=== PATIENT | female | born 1985 | race Native Hawaiian/Other Pacific Islander ===

== ENCOUNTER 2025-03-22 11:08 | Emergency (ER) | payer OTHER, SELFPAY ==
--- NOTE | ~2025-03-22 | XR_ITS ---
EXAMINATION: XR KNEE, LEFT CLINICAL INFORMATION: pain s/p twisting/fall 6d ago COMPARISON: None available. TECHNIQUE: Four views of the left knee. FINDINGS: No acute cortical disruption or malalignment. No suprapatellar bursa joint effusion. There is a 2.5 cm eccentric mixed chondromatrix bone lesion within the endosteal cortex of the posterior lateral distal diaphysis of the left femur. XR/XR knee LT 3V IMPRESSION: No acute fracture or dislocation. 2.5 cm eccentric bone lesion, distal diaphysis left femur. Consider benign versus less likely malignant. Electronically signed by: Cornelius Reynolds MD 03/22/2025 11:36 AM EDT
--- NOTE | 2025-03-22 11:12 | ED_ITS ---
HPI - Extremity Injury (Lower) General Chief Complaint: Extremity Injury, Lower Stated Complaint: L Side/ Leg Pain Time Seen by Provider: 03/22/25 13:03 Source: patient and RN notes reviewed Mode of arrival: ambulatory Limitations: no limitations History of Present Illness ED Provider: Nicky Atkinson PA-C HPI Narrative: This is a 39-year-old female, with no known medical problems, who presents emergency department with complaints of left knee pain status post mechanical fall which occurred 3 days ago. Patient was recently admitted to [facility] due to the flu and asthma exacerbation. She states that she had to use the restroom, and called for help however no one was there to help her and she accidentally fell landing directly onto her left knee. No head strike or LOC. She states that she has been unable to bear weight on her left leg secondary to the pain. Denies former injury to this knee in the past. She has been taking Tylenol PM for her pain, last dose was this morning at 10:00 a.m. No other complaints or concerns at this time. MD complaint: knee injury Onset (ago): day(s) Type of Injury: blunt Relieving factors: nothing Exacerbating factors: nothing Other symptoms: none Related Data Previous Rx's ?Medication ?Instructions ?Recorded morphine 15 mg immediate release 15 mg PO Q6H PRN severe pain 03/22/25 tablet (scale score 7-10) 3 days #7 tabs Allergies Allergy/AdvReac Type Severity Reaction Status Date / Time ibuprofen Allergy Difficulty Verified 03/22/25 11:16 Breathing NSAIDS (Non-Steroidal Allergy Difficulty Verified 03/22/25 11:16 Anti-Inflamma Breathing Review of Systems Review of Systems: Yes all other systems are reviewed and are negative Constitutional: Constitutional: Reports as per HPI [facility] Past Medical History Attestation statement: The following information was validated with the patient. Social History Social History Smoked in Last 30 Days: No Advance Directives: No Advance Directives Information Provided: Yes Do you have a plan to hurt others: No Plan Patient : No Physical Exam Vital Signs: Vital Signs: Last Vital Signs Temp 98.1 F 03/22/25 14:29 Pulse 107 H 03/22/25 14:29 Resp 16 03/22/25 14:29 BP 140/75 H 03/22/25 14:29 Pulse Ox 98 03/22/25 14:29 O2 Del Method Room Air 03/22/25 14:29 BMI result Body Mass Index 31.8 Appearance: Alert. Oriented X3. No acute distress. Eyes: Pupils equal, round and reactive to light. ENT: Pharynx normal. Neck: Normal inspection. Neck supple. CVS: Normal heart rate and rhythm. Pulses normal. Respiratory: No respiratory distress. Breath sounds normal. Abdomen: Soft and nontender. +BS x4 Skin: Skin warm and dry. Normal skin color. Normal skin turgor. No rashes. Extremities: Left knee, with no obvious bony deformity or swelling, she does have exquisite tenderness throughout the entire knee joint, decreased range of motion secondary to pain. No open wounds or lacerations, able to flex and extend however limited secondary to pain. No erythema noted. No patellar tenderness. Neuro: Oriented X 3. No motor deficit. No sensory deficit. CN II-XII intact. Course Course Course Narrative: This is a Rapid Medical Exam performed in triage by Abril Ritchie PA-C. Full HPI, ROS and PE to be performed by primary ED provider. 39 yo F w/PMHx asthma, presenting to the ED c/o L knee pain s/p twisting injury/fall onto knee while admitted at [facility] during admission 6 days ago. States she is unable to ambulate due to pain PE: L knee with mild swelling, +ttp, NV intact distally Plan: XR, pain control Medications Administered Discontinued Medications Generic Name Dose Route Start Last Admin Trade Name Freq PRN Reason Stop Dose Admin Morphine Sulfate 15 mg 03/22/25 13:32 03/22/25 13:58 Morphine Sulfate Immed Release 15 Mg Tablet PO 03/22/25 13:33 15 mg ONCE ONE Administration Medical Decision Making Medical Decision Making MDM Narrative: This is a 39-year-old female who presents emergency department with complaints of left knee pain status post mechanical fall which occurred 3 days ago. On arrival, patient mildly hypertensive and tachycardic at 107, she was speaking full sentences under no acute distress. She does have exquisite tenderness throughout the entire left knee. X-rays were obtained, revealing no acute findings however there is a 2.5 cm eccentric bone lesion of the distal diaphysis left femur - considered benign versus malignant. Discussed this finding with patient. Given that she was tearful and allergic to NSAIDs, she was medicated with morphine in the department. She was not driving, she states that her partner is driving her home. She was placed in knee immobilizer and given crutches. Discussed follow-up with orthopedics given x-ray report, and pain. She understands agrees with plan. Given strict return precautions. Stable for discharge. Differential Diagnosis Differential Diagnoses: The differential diagnosis associated with the presentation includes Sprain, strain, contusion, fracture Radiology Impression Discussion of test interpretation with radiology: I have reviewed the radiologist's reading. Radiologist Impression: FINDINGS: No acute cortical disruption or malalignment. No suprapatellar bursa joint effusion. There is a 2.5 cm eccentric mixed chondromatrix bone lesion within the endosteal cortex of the posterior lateral distal diaphysis of the left femur. XR/XR knee LT 3V IMPRESSION: No acute fracture or dislocation. 2.5 cm eccentric bone lesion, distal diaphysis left femur. Consider benign versus less likely malignant. Discharge Plan Discharge Clinical Impression: Contusion of knee, left Patient Disposition: Home, Self-Care Instructions: Contusion in Adults (ED) Additional Instructions: You were seen in the emergency department due to knee pain. Your x-rays do not show any fractures or dislocations. You do have a 2.5 cm eccentric bone lesion, distal diaphysis left femur. Consider benign versus less likely malignant. You need to follow-up with the entry specialists and or your primary care physician regarding this finding. We are unable to rule out any ligament injury therefore we are putting you in a knee immobilizer, and giving you crutches. Please continue using Tylenol at home as needed for mild pain. Morphine is a strong narcotic pain medication that I can prescribe 2 however we are limited on how many tablets we can sent over to the pharmacy. Use this sparingly as it can cause adverse side effects including but not limited to dizziness, sleepiness, addiction, constipation and others. Do not drink or drive while on this medication. If any new or worsening symptoms occur please seek emergent care. Prescriptions: New morphine 15 mg tablet 15 mg PO Q6H PRN (Reason: severe pain (scale score 7-10)) 3 Days Qty: 7 0RF Rx Instructions: Partial Fill upon patient request. Referrals: [facility] [Provider Group] Stand Alone Forms: Work/School Release Interventions: ED Discharge Assessment Last Done: 03/22/25 14:29 Discharge Date/Time: 03/22/25 14:30 Print Language: Georgian
[2025-03-22 11:13] VITALS: BP 140/75; PULSE 107; RESP 16; TEMP 36.7; O2SAT 98; BMI 31.8
[2025-03-22] MEDS: Morphine Sulfate Immed Release 15 MG TABLET PO (13:58)
[2025-03-22 14:29] VITALS: BP 140/75; PULSE 107; RESP 16; TEMP 36.7; O2SAT 98
== END 2025-03-22 14:30 | disposition home or self-care (01) ==
PROVIDERS: Emergency Provider Emergency Medicine; PCP Internal Medicine
DX: S80.02XA Contusion of left knee, initial encounter (principal); X50.1XXA Overexertion from prolonged static or awkward postures, initial encounter; M25.562 Pain in left knee; Y93.89 Activity, other specified; Y92.230 Patient room in hospital as the place of occurrence of the external cause; Y99.9 Unspecified external cause status
CPT/HCPCS: 73562; 99283; 99284

== ENCOUNTER → 2025-03-22 11:17 | Outpatient (BNV) | payer SELFPAY | PROVIDERS: Visit Provider Radiology Diagnostic Radiology | DX: M89.8X6 Other specified disorders of bone, lower leg (principal) | CPT/HCPCS: 73562 ==

== ENCOUNTER 2025-03-30 08:50 | Outpatient (AMB) | payer OTHER, SELFPAY ==
--- NOTE | 2025-03-30 09:02 | A.OFFVIS_ITS ---
Vital Signs 03/30/25 09:08 Height 5 ft 5 in Weight 182 lb BMI 30.3 Intake Visit Reasons: ER - left knee contusion, DOI 03/19/25 Intake Note: Tasha is 39 year old female who presents today for a evaluation of her left knee contusion, DOI 03/18/25. Patient reports she was admitted to [facility] due to having the flu and asthma exacerbation. Patient was given an immobilizer and crutches at the ED. She states that she had to use the commode, and called for help. However no one was there to help her and she fell landing directly onto her left knee. Patient states ongoing pain, her pain is sharp and it radiates through her whole leg. Allergies ibuprofen Allergy (Verified 03/22/25 11:16) Difficulty Breathing NSAIDS (Non-Steroidal Anti-Inflamma Allergy (Verified 03/22/25 11:16) Difficulty Breathing HPI HPI ER - left knee contusion, DOI 03/19/25: Details: Ms. Galdamez is a 39-year-old female who presents to the office today for evaluation of a left knee injury that she sustained on 03/18/2025. She reports that she was an inpatient at [facility] being treated for influenza and an asthma exacerbation. She reports that she was trying to get out of bed to go to the restroom and had requested assistance. She had waited for some time and then decided to get out of bed on her own. At that time she fell landing directly onto the left knee. Ever since then she has had pain that radiates throughout the entire knee and reports the pain radiates up into her thigh and down into her ordoñez and foot. This is also accompanied by numbness and tingling. She presented to the [facility] Emergency Department on 03/22/25 where x-rays were obtained. There was no acute fracture or dislocation. However, there was a 2.5 cm eccentric bone lesion at the distal diaphysis of the left femur. Additionally, the patient was placed into a knee immobilizer and given crutches. She was instructed follow up with orthopedics outpatient for further evaluation and treatment. 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 No ecchymosis or erythema. No signs of infection. Global tenderness to palpation overall anatomical landmarks. Range of motion is 0-45 degrees. Unable to perform Aldair's or anterior drawer due to patient pain and guarding. NVI. Assessment & Plan Assessment & Plan (1) Lesion of left femur: Code(s): M89.9 - Disorder of bone, unspecified Category: Medical (2) Contusion of knee, left: Code(s): S80.02XA - Contusion of left knee, initial encounter Category: Medical Plan Ms. Galdamez is a 39-year-old female who presents to the office today for evaluation of a left knee injury that she sustained on 03/18/2025. She reports that she was an inpatient at [facility] being treated for influenza and an asthma exacerbation. She reports that she was trying to get out of bed to go to the restroom and had requested assistance. She had waited for some time and then decided to get out of bed on her own. At that time she fell landing directly onto the left knee. Ever since then she has had pain that radiates throughout the entire knee and reports the pain radiates up into her thigh and down into her ordoñez and foot. This is also accompanied by numbness and tingling. She presented to the [facility] Emergency Department on 03/22/25 where x-rays were obtained. There was no acute fracture or dislocation. However, there was a 2.5 cm eccentric bone lesion at the distal diaphysis of the left femur. Additionally, the patient was placed into a knee immobilizer and given crutches. She was instructed follow up with orthopedics outpatient for further evaluation and treatment. While in the office today, I provided the patient with a playmaker knee brace off the shelf. She can continue using crutches to assist with ambulation as needed. I encouraged the patient to participate in gentle range of motion to avoid any stiffness. I have ordered an MRI to further evaluate the integrity of the knee and the lesion that was found at the distal diaphysis of the left femur. I contacted our MRI department and specifically mentioned the areas of interest that needs to be imaged as well as placed these instructions in the order as directed. The patient will follow up after the MRI is obtained, sooner if needed. X-rays of the left knee obtained on 03/22/2025: IMPRESSION: No acute fracture or dislocation. 2.5 cm eccentric bone lesion, distal diaphysis left femur. Consider benign versus less likely malignant. Orders: Orders MR knee LT w con Today M89.9 - Disorder of bone, unspecified Coding Level of Care Code New Pt Level 4 (79521) Diagnoses Lesion of left femur M89.9 Contusion of knee, left S80.02XA
[2025-03-30 09:08] VITALS: BMI 30.3
== END 2025-03-30 09:41 | disposition home or self-care (01) ==
LOC: HO.HOS 08:51
PROVIDERS: PCP Internal Medicine; Visit Provider Physician Assistant
DX: M89.9 Disorder of bone, unspecified (principal); S80.02XA Contusion of left knee, initial encounter
CPT/HCPCS: 99203

== ENCOUNTER → 2025-03-30 08:50 | Outpatient (BNVA) | payer OTHER, SELFPAY | PROVIDERS: PCP Internal Medicine; Visit Provider Physician Assistant | DX: S80.02XA Contusion of left knee, initial encounter (principal); M89.9 Disorder of bone, unspecified; X58.XXXA Exposure to other specified factors, initial encounter; Y93.9 Activity, unspecified; Y92.9 Unspecified place or not applicable; Y99.9 Unspecified external cause status | CPT/HCPCS: 99202 ==

== ENCOUNTER → 2025-04-30 10:08 | Outpatient (BNV) | payer OTHER, SELFPAY | PROVIDERS: Visit Provider Radiology Diagnostic Radiology | DX: M87.052 Idiopathic aseptic necrosis of left femur (principal) | CPT/HCPCS: 73720 ==

== ENCOUNTER 2025-04-30 10:11 | Outpatient (REF) | payer OTHER, SELFPAY ==
--- NOTE | ~2025-04-30 | MR_ITS ---
EXAM: MRI left femur was performed without and with IV contrast TECHNIQUE: Multiplanar - multisequence imaging through a left femur, lower extremity was performed without and with IV contrast. Contrast: 8.5 mL gadolinium based IV contrast INDICATION: Incidental sclerotic lesion was present on an x-ray PRIOR: X-ray from March 22, 2025 FINDINGS: Soft tissues: There is no muscle edema or fatty streaking. There is no muscle atrophy. There is no soft tissue mass or fluid collection. No abnormalities are evident along the major neurovascular structures. After contrast, there is physiologic enhancement of the soft tissues. Marrow: There are serpentine bands of low T1 and high T2 signal abnormality in the distal femoral metaphysis extending into the medial femoral condyle greater than lateral femoral condyle involving at least 50% of the subchondral marrow in the medial femoral condyle. There is involvement of the distal 10 cm of the left femur. Lateral femoral condyle signal abnormality is mostly in nonweight-bearing regions. However, there is abnormal subchondral bone extensively in the far posterior lateral condyle. Involving extends mainly to the region of the subchondral marrow of the medial greater than lateral trochlea. After contrast, there is hyperenhancement of the serpentine bands of marrow placement. No marrow edema is apparent. No subchondral collapse is evident, though this could be better delineated on dedicated knee MRI. The right femur was imaged only in the coronal plane. It demonstrates a similar abnormality measuring 2.8 x 6.3 cm (transverse by CC) located in the distal metadiaphysis and a small focal area in the posterior nonweightbearing subchondral marrow of the medial femoral condyle. This area also hyperintense. MR/MR femur LT wo/w con IMPRESSION: Avascular necrosis is present in the left greater than right distal femoral metadiaphyses and femoral condyles. Involvement in the left medial femoral condyle extends to the subchondral bone involving 50-75% of the subchondral bone marrow and could be at risk for future subchondral insufficiency fracture and collapse. Electronically signed by: Adryan Wang MD 04/30/2025 03:00 PM EDT
[2025-04-30] MEDS: gadobutroL 10 ML VIAL IVPUSH (11:00)
== END 2025-04-30 10:12 | disposition home or self-care (01) ==
LOC: HO.MRI 10:11
PROVIDERS: Visit Provider Physician Assistant
DX: M89.9 Disorder of bone, unspecified (principal)
CPT/HCPCS: 73720; A9585

== ENCOUNTER 2025-05-01 09:01 | Outpatient (AMB) | payer OTHER, SELFPAY ==
--- NOTE | 2025-05-01 09:17 | MHC.OFFVIS ---
Vital Signs 05/01/25 09:28 Height 5 ft 5 in Weight 182 lb BMI 30.3 Intake Visit Reasons: OV - brace fitting adjustment Intake Note: Tasha is 39 year old female who presents today for a brace fitting adjustment for her left knee. Patient mentions that her pain has been constant since her brace keeps falling down. Allergies ibuprofen Allergy (Verified 05/01/25 09:23) Difficulty Breathing NSAIDS (Non-Steroidal Anti-Inflamma Allergy (Verified 05/01/25 09:23) Difficulty Breathing HPI HPI OV - brace fitting adjustment: Details: Ms. Galdamez presents to the office today for a brace fitting and further discussion of MRI findings. She reports that she is having extreme difficulty with pain in the left knee. She presents to the office today wearing the prior knee brace given and attempting to walk on her toes. 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 No ecchymosis or erythema. No signs of infection. Global tenderness to palpation overall anatomical landmarks. Range of motion is 0-45 degrees. Unable to perform Aldair's or anterior drawer due to patient pain and guarding. NVI. Assessment & Plan Assessment & Plan (1) Avascular necrosis: Code(s): M87.00 - Idiopathic aseptic necrosis of unspecified bone Category: Medical Plan While in the office today I again discussed the MRI findings with the patient being avascular necrosis in the right distal femur. With the involvement of the left medial femoral condyle involving 50-75% of the subchondral bone marrow, I did we explained to the patient that there could be a high risk for future insufficiency fracture and collapse. Therefore, after discussion with Dr. Crooks about the case yesterday before calling the patient for her results a collaborative treatment plan was created. The plan was to have the patient continue her bracing and go back to using crutches with TTWB. Although the patient did not present to the office today with her crutches she does report that she has a pair at home that she will use. It was demonstrated to the patient while in the office today how to TTWB with crutches. She understands and accepts the risks involving this injury and noncompliance with recommendations could lead to the need for surgical intervention or additional orthopedic intervention. She will follow up in 4-6 weeks, sooner if needed. Should the patient have a sudden increase in pain she will contact our office immediately or present to the emergency department for evaluation. MRI obtained on 04/30/2025: IMPRESSION: Avascular necrosis is present in the left greater than right distal femoral metadiaphyses and femoral condyles. Involvement in the left medial femoral condyle extends to the subchondral bone involving 50-75% of the subchondral bone marrow and could be at risk for future subchondral insufficiency fracture and collapse. Medications: New tramadol 50 mg PO Q6-8H PRN 28 tabs 0RF pain Coding Level of Care Code Est Pt Level 3 (46062) Diagnoses Avascular necrosis M87.00
[2025-05-01 09:28] VITALS: BMI 30.3
== END 2025-05-01 09:45 | disposition home or self-care (01) ==
LOC: HO.HOS 09:01
PROVIDERS: Visit Provider Physician Assistant
DX: M87.051 Idiopathic aseptic necrosis of right femur (principal)
CPT/HCPCS: 99213

== ENCOUNTER → 2025-05-01 09:01 | Outpatient (BNVA) | payer OTHER, SELFPAY | PROVIDERS: Visit Provider Physician Assistant | DX: M87.00 Idiopathic aseptic necrosis of unspecified bone (principal) | CPT/HCPCS: 99212 ==

== ENCOUNTER 2025-05-10 17:32 | Emergency (ER) | payer OTHER, SELFPAY ==
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
[2025-05-10 17:51] VITALS: BP 121/75; PULSE 68; RESP 18; TEMP 36.3; O2SAT 98; BMI 30.3
--- NOTE | 2025-05-10 17:53 | ED_ITS ---
HPI - General Adult General Chief complaint: Eye Problems Stated complaint: left eye pain,swelling Time Seen by Provider: 05/10/25 20:29 History of Present Illness ED Provider: Bobby Fortune MD HPI narrative: [age] female. Eye irritation and pain and drainage. Related Data Previous Rx's ?Medication ?Instructions ?Recorded morphine 15 mg immediate release 15 mg PO Q6H PRN severe pain 03/22/25 tablet (scale score 7-10) 3 days #7 tabs tramadol 50 mg tablet 50 mg PO Q6-8H PRN pain #28 tabs 05/01/25 erythromycin 5 mg/gram (0.5 %) eye 1 appl ophthalmic (eye) .at 05/10/25 ointment bedtime #3.5 grams polymyxin B sulfate 10,000 1 drp ophthalmic (eye) Q3H 7 days 05/10/25 unit-trimethoprim 1 mg/mL eye drops #10 mL Allergies Allergy/AdvReac Type Severity Reaction Status Date / Time ibuprofen Allergy Difficulty Verified 05/10/25 17:53 Breathing NSAIDS (Non-Steroidal Allergy Difficulty Verified 05/01/25 09:23 Anti-Inflamma Breathing PMFSH Social History Social History Alcohol intake: current Alcohol intake frequency: holidays/special occasions only Patient Tobacco Use Status: Former Tobacco user Cigarettes Per Day: 3 Current occupational status: employed 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 Left eye with EOM I, regular circular pupil with constriction. Injected and tearing. Moderately photophobic. No hypopyon or hyphema Fluorescein staining with scleral uptake at about 03:00 o'clock. No corneal uptake or Benton sign Course Course Course Narrative: RME, this is a rapid medical exam performed by Suraj Madden please refer to primary provider for complete H&P- 39 year old female presents for evaluation of left eye pain. She woke up with mild discomfort and now has severe pain and tearing. She has a pinpoint pupil, injected sclera. No clear ulceration. There is mild periorbital edema. Plan for labs, focused eye exam Medications Administered Discontinued Medications Generic Name Dose Route Start Last Admin Trade Name Freq PRN Reason Stop Dose Admin Diphtheria/Tetanus/Acell Pertussis 0.5 ml 05/10/25 20:39 05/10/25 22:35 Diphth,Pertus(Acell),Tet Adult 0.5 Ml Syringe IM 05/10/25 20:40 0.5 ml .ONCE ONE Administration Erythromycin 1 cm 05/10/25 20:45 05/10/25 22:37 Erythromycin Base 0.5% Oph Oin 1 Gm Tube EYE-LEFT 05/10/25 20:46 1 cm ONCE ONE Administration Fluorescein Sodium 1 strip 05/10/25 17:53 05/10/25 22:35 Fluorescein Sodium Strip EYE-LEFT 05/10/25 17:54 1 strip ONCE ONE Administration Ibuprofen 800 mg 05/10/25 20:39 05/10/25 22:38 Ibuprofen 800 Mg Tablet PO 05/10/25 20:40 Not Given ONCE ONE Oxycodone HCl 5 mg 05/10/25 20:39 05/10/25 22:36 Oxycodone Hcl Immed Release 5 Mg Tablet PO 05/10/25 20:40 5 mg ONCE ONE Administration Tetracaine HCl 1 drop 05/10/25 17:53 05/10/25 22:35 Tetracaine Hcl/Pf 0.5% Oph Juliana 4 Ml Drops EYE-LEFT 05/10/25 17:54 1 drop ONCE ONE Administration Medical Decision Making Lab Data 05/10/25 18:08 05/10/25 18:08 Labs: Lab Results 05/10/25 Range/Units 18:08 WBC 11.2 H (4.8-10.8) X10*3/uL RBC 4.48 (4.20-5.50) X10*6/uL Hgb 12.5 (12.0-16.0) g/dl Hct 37.7 (37.0-47.0) % MCV 84.2 (80.0-98.0) fL MCH 27.9 (27.0-33.0) pg MCHC 33.2 (31.0-35.0) g/dl RDW 14.5 (11.0-16.0) % Plt Count 407 H (160-400) X10*3/uL MPV 9.4 (9.4-12.3) fL Immature Gran % (Auto) 0.2 (0.0-0.4) % Neut % (Auto) 70.8 (45-73) % Lymph % (Auto) 20.5 (20-40) % [place] % (Auto) 5.5 (2-11) % Eos % (Auto) 2.4 (0-4) % Baso % (Auto) 0.6 (0-2) % Lymph # (Auto) 2.3 (1.2-4.9) X10*3/uL [place] # (Auto) 0.6 (0.1-1.2) X10*3/uL Eos # (Auto) 0.3 (0.0-0.4) X10*3/uL Baso # (Auto) 0.1 (0.0-0.2) X10*3/uL Abs Immat Gran (auto) 0.02 (0.00-0.03) X10*3/uL Absolute Neuts (auto) 7.9 (2.0-8.3) x10*3/uL Absolute Nucleated RBC 0.000 (0.0-0.012) X10*3/uL Nucleated RBC % (auto) 0.0 (0.0-0.2) /100WBC Sodium 141 (135-145) mmol/L Potassium 4.3 (3.3-5.1) mmol/L Chloride 106 (96-108) mmol/L Carbon Dioxide 27 (22-29) mmol/L Anion Gap 12 (12-20) BUN 10 (9-16) mg/dL Creatinine 0.64 (0.5-1.4) mg/dL Estim Creat Clear Calc 126.4 Estimated GFR > 60 Random Glucose 95 (60-115) mg/dL Calcium 9.2 (8.4-10.2) mg/dL Beta HCG, Quant < 2 mIU/mL Discharge Plan Discharge Clinical Impression: Abrasion of sclera Patient Disposition: Home, Self-Care Instructions: Corneal Abrasion (ED), Photophobia (ED) Additional Instructions: _ DISCHARGE DIAGNOSES: Abrasion of the sclera injury to the eye HISTORY OF PRESENTATION: ?[03] EMERGENCY DEPARTMENT COURSE,TESTS, TREATMENTS: While in the ED today [04] DISCHARGE MEDICATIONS: ?[We have made no changes to your regular medication regimen] FOLLOW-UP: ?Call your primary or general physician soon as possible to discuss your symptoms, your ED visit and to discuss follow up plans call ophtho INSTRUCTIONS ?& RETURN PRECAUTIONS: If any symptoms change first call your primary physician, if it is after-hours your primary doctors office should have a provider senior environmental practice leader you can speak with. If the symptoms are severe or very concerning to you then call 911 or return to the ED. [07] Bobby Fortune MD Emergency Physician [facility] Prescriptions: New polymyxin B sulf-trimethoprim 10,000 unit- 1 mg/mL drops 1 drp ophthalmic (eye) Q3H 7 Days Qty: 10 0RF Rx Instructions: while awake; do not exceed 6 doses in 24 hours erythromycin 5 mg/gram (0.5 %) ointment 1 appl ophthalmic (eye) .at bedtime Qty: 3.5 0RF No Action morphine 15 mg tablet 15 mg PO Q6H PRN (Reason: severe pain (scale score 7-10)) 3 Days Qty: 7 0RF Rx Instructions: Partial Fill upon patient request. tramadol 50 mg tablet 50 mg PO Q6-8H PRN (Reason: pain) Qty: 28 0RF Referrals: Cristhian Hopkins [Physician] - 2 days Interventions: ED Discharge Assessment Last Done: 05/10/25 23:01 Discharge Date/Time: 05/10/25 23:01 Print Language: [place]
[2025-05-10 18:12] LABS: MANUAL DIFF FLAG NO
[2025-05-10 18:15] LABS: Basophils Absolute Auto 0.1 X10*3/uL (0.0-0.2); Basophils Percent Auto 0.6 % (0-2); Eosinophils Absolute Auto 0.3 X10*3/uL (0.0-0.4); Eosinophils Percent Auto 2.4 % (0-4); Hematocrit 37.7 % (37.0-47.0); Hemoglobin 12.5 g/dl (12.0-16.0); Imm Gran Abs Auto 0.02 X10*3/uL (0.00-0.03); Imm Gran Pct Auto 0.2 % (0.0-0.4); Lymphocytes Absolute Auto 2.3 X10*3/uL (1.2-4.9); Lymphocytes Percent Auto 20.5 % (20-40); Mean Corpuscular HGB Conc 33.2 g/dl (31.0-35.0); Mean Corpuscular Hemoglobin 27.9 pg (27.0-33.0); Mean Corpuscular Volume 84.2 fL (80.0-98.0); Mean Platelet Volume 9.4 fL (9.4-12.3); Monocytes Absolute Auto 0.6 X10*3/uL (0.1-1.2); Monocytes Percent Auto 5.5 % (2-11); Neutrophils Absolute Auto 7.9 x10*3/uL (2.0-8.3); Neutrophils Percent Auto 70.8 % (45-73); Platelet Count 407 X10*3/uL (160-400); Red Blood Count 4.48 X10*6/uL (4.20-5.50); Red Cell Distribution Width 14.5 % (11.0-16.0); White Blood Count 11.2 X10*3/uL (4.8-10.8)
[2025-05-10 18:32] LABS: Anion Gap 12 (12-20); Blood Urea Nitrogen 10 mg/dL (9-16); Calcium 9.2 mg/dL (8.4-10.2); Carbon Dioxide 27 mmol/L (22-29); Chloride 106 mmol/L (96-108); Creatinine Clr Calc Pharmacy 126.4; Estimated Glomerular Filt Rate > 60; Glucose Random 95 mg/dL (60-115); Potassium 4.3 mmol/L (3.3-5.1); Sodium 141 mmol/L (135-145)
[2025-05-10 18:36] LABS: HCG Quantitative < 2 mIU/mL
[2025-05-10 19:19] VITALS: BP 117/65; PULSE 59; RESP 18; TEMP 36.9; O2SAT 97
[2025-05-10 22:04] VITALS: BP 126/60; PULSE 60; RESP 18; TEMP 36.9; O2SAT 97
[2025-05-10] MEDS: Diphth,Pertus(ACell),Tet Adult 0.5 ML SYRINGE IM (22:35)
[2025-05-10] MEDS: Tetracaine HCl/PF 0.5% Oph Sol 4 ML DROPS 1 DROP EYE-LEFT (22:35)
[2025-05-10] MEDS: Fluorescein Sodium STRIP 1 STRIP EYE-LEFT (22:35)
[2025-05-10] MEDS: oxyCODONE HCl Immed Release 5 MG TABLET PO (22:36)
[2025-05-10] MEDS: Erythromycin Base 0.5% Oph Oin 1 GM TUBE 1 CM EYE-LEFT (22:37)
[2025-05-10 23:01] VITALS: BP 126/60; PULSE 60; RESP 18; TEMP 36.9; O2SAT 97
== END 2025-05-10 23:01 | disposition home or self-care (01) ==
PROVIDERS: Physician Assistant; Emergency Provider Emergency Medicine; PCP Internal Medicine
DX: S05.02XA Injury of conjunctiva and corneal abrasion without foreign body, left eye, initial encounter (principal); H57.12 Ocular pain, left eye; H53.142 Visual discomfort, left eye; H05.222 Edema of left orbit; X58.XXXA Exposure to other specified factors, initial encounter; Y93.9 Activity, unspecified; Y92.9 Unspecified place or not applicable; Y99.8 Other external cause status; Z23 Encounter for immunization; Z87.891 Personal history of nicotine dependence
CPT/HCPCS: 36415; 70480; 80048; 84702; 85025; 90471; 90715; 99284

== ENCOUNTER → 2025-05-10 20:44 | Outpatient (BNV) | payer OTHER, SELFPAY | PROVIDERS: Emergency Provider Emergency Medicine; PCP Internal Medicine; Visit Provider Radiology Diagnostic Radiology | DX: H57.12 Ocular pain, left eye (principal) | CPT/HCPCS: 70480 ==

== ENCOUNTER 2025-06-14 09:01 | Outpatient (REF) | payer OTHER, SELFPAY ==
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
--- NOTE | ~2025-06-14 | XR_ITS ---
EXAMINATION: XR KNEE, LEFT CLINICAL INFORMATION: M25.569 - Pain in unspecified knee COMPARISON: None available. TECHNIQUE: Standing bilateral AP, sunrise and lateral views of the left knee. FINDINGS: There is a small amount of synovial fluid in the suprapatellar pouch. There are no osteophytes. Joint spaces are preserved. XR/XR knee LT 3V IMPRESSION: Unremarkable left knee. Electronically signed by: Adryan Wang MD 06/14/2025 11:15 AM EDT
== END 2025-06-14 09:02 | disposition home or self-care (01) ==
LOC: HO.HOSX 09:01
PROVIDERS: Visit Provider Physician Assistant
DX: M87.052 Idiopathic aseptic necrosis of left femur (principal)
CPT/HCPCS: 73562; 99212

== ENCOUNTER 2025-06-14 10:25 | Outpatient (AMB) | payer OTHER, SELFPAY ==
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
== END 2025-06-14 11:43 | disposition home or self-care (01) ==
LOC: HO.HOS 10:25
PROVIDERS: Visit Provider Physician Assistant
DX: M87.00 Idiopathic aseptic necrosis of unspecified bone (principal); M89.9 Disorder of bone, unspecified
CPT/HCPCS: 99213

== ENCOUNTER → 2025-06-14 10:31 | Outpatient (BNV) | payer MEDICAID, SELFPAY | PROVIDERS: Visit Provider Radiology Diagnostic Radiology | DX: M25.462 Effusion, left knee (principal) | CPT/HCPCS: 73562 ==

== ENCOUNTER 2025-07-21 09:30 | Outpatient (REF) | payer OTHER, SELFPAY ==
--- NOTE | ~2025-07-21 | MR_ITS ---
CLINICAL HISTORY: M87.00 - Idiopathic aseptic necrosis of unspecified bone --- Additional Notes or Special Instructions: Patient has known left distal femur AVN MR of the left knee without contrast. No prior MR provided. Findings: No meniscal tear is seen. The cruciate and collateral ligaments are intact. The patellar and quadriceps tendons are unremarkable. There are multiple prominent bone infarcts in the distal femur. No articular cartilage defects or significant degenerative changes are seen. Patellofemoral alignment is normal. The patellar retinacula are intact. There is a minimal joint effusion. No significant popliteal cyst is identified. Impression: Multiple prominent bony infarcts in the distal femur. Minimal joint effusion. There is minimal edema deep to the iliotibial band that may be incidental. Mild iliotibial band friction syndrome is technically a possibility. This document has been electronically signed by: Donell Roque MD on 07/23/2025 20:04:49
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
== END 2025-07-21 09:31 | disposition home or self-care (01) ==
LOC: HO.MRI 09:30
PROVIDERS: Visit Provider Physician Assistant
DX: M87.012 Idiopathic aseptic necrosis of left shoulder (principal)
CPT/HCPCS: 73721

== ENCOUNTER → 2025-07-21 09:30 | Outpatient (BNV) | payer OTHER, SELFPAY | PROVIDERS: Visit Provider Radiology Diagnostic Radiology | DX: M87.052 Idiopathic aseptic necrosis of left femur (principal) | CPT/HCPCS: 73721 ==

== ENCOUNTER 2025-08-15 10:51 | Outpatient (AMB) | payer OTHER, SELFPAY ==
[2025-08-15 10:57] VITALS: BP 128/71; PULSE 88; RESP 18; O2SAT 99; BMI 31.6
--- NOTE | 2025-08-15 10:57 | A.OFFVIS_ITS ---
Vital Signs 08/15/25 10:57 Height 5 ft 5 in Weight 190 lb BMI 31.6 BP 128/71 Blood Pressure Location Lt brachial Position Sitting Respiration 18 Pulse 88 Pulse Source Pulse Oximeter Pulse Oximetry (%) 99 Intake Visit Reasons: Idiopathic aseptic necrosis of unspecified bone Allergies ibuprofen Allergy (Verified 08/15/25 10:57) Difficulty Breathing NSAIDS (Non-Steroidal Anti-Inflamma Allergy (Verified 08/15/25 10:57) Difficulty Breathing HPI Comments Details: Mary is very pleasant 40 years old female who presents in my office with complains on pain in bilateral knees more on the left and less on the right, she also reports that left pain radiates up to the thigh and on the lateral surface of the thigh he reports that pain stays elevated 8.5 to 7.5 on the left all the time. She reported that her pain started in [id number] when she while treated at [facility] fell in the bathroom. She was diagnose with bilateral more pronounced on the left and less on the right avascular necrosis of bilateral knees. Since then she reports severe pain in bilateral knees, she can not sleep normally can not do activities of daily living she can not take care of herself but she can not function normally. She is unemployed. Heat application and cold application helps her pain for short period of time. In terms of tissue damage she describes her pain as throbbing, pounding, shooting, stabbing, sharp, cramping, tingling, stinging, sore, heavy, exhausting, fried full cessation. She had MRIs performed in [facility] dictated as below. She tried occupational therapy she is currently wearing brace on the left knee. She tried 10s unit she reports no help from 10s unit. She never had any injections into the knee. Her past medical history significant for history of ASD type 2 history and heart murmur and history of asthma. Is morbidly obese. Past surgical history significant for tubal ligations and tonsils removal as a child. She currently smokes cigarettes. She smokes 1-2 cigarettes a day she is trying to wean herself off of cigarettes smoking. She denies alcohol drinking, she drinks 2 cups of coffee a day and she denies recreational drugs. 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 Review of Systems Const All systems reviewed & are unremarkable except as noted in HPI and below ENT Reports Normal hearing present Neuro Reports Normal hearing present, Denies Abnormal speech present, Denies confusion and Denies Sensory deficit (Neuro) Psych Denies confusion Physical Exam Vital Signs: Last Vital Signs Pulse 88 08/15/25 10:57 Resp 18 08/15/25 10:57 BP 128/71 08/15/25 10:57 Pulse Ox 99 08/15/25 10:57 BMI result Body Mass Index 31.6 Const General: no acute distress; No confusion Nutritional Appearance: obese morbidly obese Orientation/consciousness: patient oriented x3 and No confusion Eyes General: appearance normal, both eyes and all related structures Pupils: Equal, round and reactive pupils present EOM: EOMs intact bilaterally Neck Neck: Yes full ROM Chest Chest palpation & inspection: normal inspection of the chest Resp Effort & Inspection: normal respiratory effort, able to speak in complete sentences, normal respiratory pattern, no audible wheezes and no cough Cardio Jugular venous distension: no JVD GI Inspection: Yes normal to inspection Neuro General: patient oriented x3, gait normal and No confusion Cranial nerves: Yes CN's II-XII intact bilaterally, Yes Equal, round and reactive pupils present, Yes Normal hearing present and Yes Ability to bilaterally elevate shoulders present Speech: No Abnormal speech present Gait exam (Neuro): Normal gait present Motor exam (neuro): 5/5 motor strength present throughout Sensory Exam: No Sensory deficit (Neuro) Extrem Other: On inspection the patient is wearing a brace in the left knee positioned. Range of motion in bilateral knees severely compromised more on the left and less on the right. Severe tenderness on palpation in projection of the left knee and left thigh. General: No pedal edema Psych Speech and movement: Normal speech and movement present Affect: normal affect Attitude: cooperative Thought process: Normal thought process present Thought content: Normal thought content present Insight: Good insight present (Psych) Judgement: Good judgement present (Psych) Results Reviewed Results Reviewed: MRI bilateral knees. MR of the left knee without contrast. No prior MR provided. Findings: No meniscal tear is seen. The cruciate and collateral ligaments are intact. The patellar and quadriceps tendons are unremarkable. There are multiple prominent bone infarcts in the distal femur. No articular cartilage defects or significant degenerative changes are seen. Patellofemoral alignment is normal. The patellar retinacula are intact. There is a minimal joint effusion. No significant popliteal cyst is identified. Impression: Multiple prominent bony infarcts in the distal femur. Minimal joint effusion. There is minimal edema deep to the iliotibial band that may be incidental. Mild iliotibial band friction syndrome is technically a possibility. Assessment & Plan Assessment & Plan (1) Lesion of left femur: Code(s): M89.9 - Disorder of bone, unspecified Category: Medical (2) Avascular necrosis: Code(s): M87.00 - Idiopathic aseptic necrosis of unspecified bone Category: Medical (3) Bilateral knee pain: Code(s): M25.561 - Pain in right knee; M25.562 - Pain in left knee Category: Medical Plan Avascular necrosis is very pronounced on the MRI of the left knee and moderate on the right knee. The patient complains on mostly left knee pain. I offered this patient to have diagnostic femoral nerve block ultrasound-guided if this will help the patient I will try sprint PNS to help her pain in the knee. I do not believe genicular nerve block will be helpful for her pain. Possibility exists of examining her left iliotibial band and address some sort of a treatments at that area. Also treatment of the pain could be completed with DRG stimulation. Patient Instructions: I here by testify that I spent 45 minutes in conversation with this patient as well as evaluating her prior records, prior diagnostic studies, planning her care and organizing this note. Coding Level of Care Code New Pt Level 4 (31167) Diagnoses Lesion of left femur M89.9 Avascular necrosis M87.00 Bilateral knee pain M25.561; M25.562
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
== END 2025-08-15 11:20 | disposition home or self-care (01) ==
PROVIDERS: PCP Internal Medicine; Referring Provider Physician Assistant; Visit Provider Anesthesiology
DX: M87.0 Idiopathic aseptic necrosis of bone (principal); M25.561 Pain in right knee; M25.562 Pain in left knee
CPT/HCPCS: 99204

== ENCOUNTER → 2025-08-15 10:51 | Outpatient (BNVA) | payer OTHER, SELFPAY | PROVIDERS: Referring Provider Physician Assistant; Visit Provider Anesthesiology | DX: M87.0 Idiopathic aseptic necrosis of bone (principal); M25.561 Pain in right knee; M25.562 Pain in left knee; M89.9 Disorder of bone, unspecified | CPT/HCPCS: 99202 ==

== ENCOUNTER 2025-09-07 09:17 | Day surgery (SDC) | payer OTHER, SELFPAY ==
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
[2025-09-05 14:05] VITALS: BMI 31.6
--- NOTE | 2025-09-05 15:03 | P.CONAN_ITS ---
Documented by User: Abril Gonzalez NP 09/05/25 15:06 HPI - Anesthesia Eval Consult details Narrative: 40 yr old female for left Femoral Nerve Block Pediatric dx ASD type 2, heart murmur: not followed by cardiology; PCP ordered an echo 06/2025, but not yet done - case reviewed with LM, okay to proceed. Asthma: on ICS/LABA PMFSH Active Problems Active Problems: All Active Problems Bilateral knee pain (Acute) Avascular necrosis (Acute) Lesion of left femur (Acute) Past Medical History Medical History Cardiomegaly Former smoker Obesity (BMI 30-39.9) Asthma Murmur ASD (atrial septal defect) Surgical History Surgical History Hx of tonsillectomy Hx of tubal ligation Hx of section Social History Social History Alcohol intake: current Alcohol intake frequency: holidays/special occasions only Patient Tobacco Use Status: Former Tobacco user Cigarettes Per Day: 3 Current occupational status: employed 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 Allergies Allergy/AdvReac Type Severity Reaction Status Date / Time ibuprofen Allergy Difficulty Verified 08/15/25 10:57 Breathing NSAIDS (Non-Steroidal Allergy Difficulty Verified 08/15/25 10:57 Anti-Inflamma Breathing Home Medications ?Medication ?Instructions ?Recorded ?Confirmed ?Last Taken ?Type fluticasone 250 mcg-salmeterol 50 1 ea inhalation BID 09/05/25 09/05/25 Unknown History mcg/dose blistr powdr for inhalation (Advair Diskus) Exam Height,Weight and Vital Signs: Height 5 ft 5 in Weight 86.183 kg Narrative Narrative: EKG 02/2025 NSR, no acute ST-T wave changes, rate 84 Documented by User: Criselda Allison MD 09/07/25 08:48 [facility] Past Medical History Medical History Cardiomegaly Former smoker Obesity (BMI 30-39.9) Asthma Murmur ASD (atrial septal defect) Family History Family history of problems with anesthesia: No Surgical History Surgical History Hx of tonsillectomy Hx of tubal ligation Hx of section History of Problems with Anesthesia: No Social History Social History Alcohol intake: current Alcohol intake frequency: holidays/special occasions only Patient Tobacco Use Status: Former Tobacco user Cigarettes Per Day: 3 Current occupational status: employed 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 Allergies Allergy/AdvReac Type Severity Reaction Status Date / Time ibuprofen Allergy Difficulty Verified 08/15/25 10:57 Breathing NSAIDS (Non-Steroidal Allergy Difficulty Verified 08/15/25 10:57 Anti-Inflamma Breathing Home Medications ?Medication ?Instructions ?Recorded ?Confirmed ?Last Taken ?Type fluticasone 250 mcg-salmeterol 50 1 ea inhalation BID 09/05/25 09/05/25 Unknown History mcg/dose blistr powdr for inhalation (Advair Diskus) Exam Airway Mallampati Class: II TM Dist: >3cm Neck ROM: Full Heart: rrr Lungs: cta Assessment and Plan Assessment Anesthesia Assessment: Anesthesia Plan Discussed and Chart Reviewed Final Anesthetic Review Family History of Problems with Anesthesia: No History of Problems with Anesthesia: No NPO: Yes ASA Class: III Final Preanesthetic Review: No Changes in Pt Med Stat, Meds/Allgs Chart Reviewed, Consent Obtained/Reviewed and Anes Risks/Benef Reviewed Patient Risk: Intermediate Procedure Risk: Low Anesthetic Plan Anesthetic Plan: MAC: and Agree w/ Assess. and Plan Disposition: Standard PACU
[2025-09-07 09:33] VITALS: BP 111/87; PULSE 74; RESP 14; TEMP 36.4; O2SAT 98; BMI 33.0
[2025-09-07] MEDS: Lactated Ringers 1,000 ML 100 ML IVCONT (09:38)
--- NOTE | 2025-09-07 09:52 | MHC.SHP ---
Pre-Procedural Eval Section A - 24 Hr Update-Section A only Date of Service: 09/07/25 The patient is an INPATIENT: No Changes since office visit: Yes Patient answered all questions The patient has been examined within 24 hours of the surgical procedure. The History & Physical has been completed within 30 days and I have reviewed it.: No Section B - Complete if H&P > 30 days Chief Complaint: Idiopathic aseptic necrosis of unspecified bone,pa Details of Present Illness: As above Relevant Family History (Specify if Yes): No Relevant Social History: Other (specify) (Unknown) Present Medications: see Short Stay Collaborative assessment Medical History: Significant History History of Previous Operations: No relevant previous surgery Allergies: Allergies Allergy/AdvReac Type Severity Reaction Status Date / Time ibuprofen Allergy Difficulty Verified 08/15/25 10:57 Breathing NSAIDS (Non-Steroidal Allergy Difficulty Verified 08/15/25 10:57 Anti-Inflamma Breathing Review of Systems Sugical H&P ROS: Negative: Constitution, Cardiovascular, Respiratory, Neurological, Psychiatric, Hem-Onc, Allergic/Immunologic, Gastrointestinal, Genitourinary, Integumentary, Endocrine and Eyes/Ears/Nose/Throat and Yes, Specify: Musculoskeletal (Avascular necrosis bilateral knee) Plan I have reviewed the history and physical and performed a pertinent physical examination on my patient. No changes have occurred unless specified. I will perform femoral nerve block left. Time Spent With Patient Time: Total time managing care of this patient today ____ minutes.
--- NOTE | 2025-09-07 10:13 | PM.OP ---
Brief Operative Note Date of Service: 09/07/25 Pre-op diagnosis: Left knee pain Post-op diagnosis: same Procedure: Femoral nerve block ultrasound-guided Surgeon: Wilmer Lawson MD Anesthesia: MAC Was an Maternity Floor Supervisor used for this Procedure?: No Estimated blood loss (mL): 0 Condition: stable Disposition: PACU
--- NOTE | 2025-09-07 10:14 | W.PM.OPN ---
Operative Note Operative Note Date of Service: 09/07/25 Narrative: Ultrasound-guided femoral nerve block left. The patient came to the operating room after informed consent was thoroughly explained to the patient. She was positioned supine on the operating table, ASA monitors were applied and patient was moderately sedated. The left groin and left thigh were prepped with ChloraPrep and draped with sterile self adhesive utility towels. Sterilely covered ultrasound probe was brought over the groin of the patient and left femoral artery femoral vein and femoral nerve were demonstrated on the screen. 100 mm echo stim needle was inserted next to the ultrasound probe and advanced to were the femoral nerve in in plane fashion. When tip of the needle was positioned next to the nerve injection of the saline was performed and spread of the saline in nerve vicinity was demonstrated on the screen. After that 9 cc of ropivacaine 0.5% was injected into the needle. The spread of the medication next to the nerve was documented on the screen. Upon completion of the injection the needle was withdrawn sterile Band-Aid was applied. The patient tolerated the procedure well. She was taken outside of the operating room to recovery room where she recovered uneventfully.
[2025-09-07 10:16] VITALS: BP 114/61; PULSE 70; RESP 15; TEMP 36.7; O2SAT 100
== END 2025-09-07 11:12 | disposition home or self-care (01) ==
PROVIDERS: Visit Provider Anesthesiology
PROC: 3E0T3BZ Introduction of Anesthetic Agent into Peripheral Nerves and Plexi, Percutaneous Approach (ICD-10-PCS; CPT 64447; principal; 2025-09-07 11:00)
DX: M25.562 Pain in left knee (principal); M87.00 Idiopathic aseptic necrosis of unspecified bone; M89.9 Disorder of bone, unspecified; R20.0 Anesthesia of skin; R01.1 Cardiac murmur, unspecified; Z86.79 Personal history of other diseases of the circulatory system; J45.909 Unspecified asthma, uncomplicated; E66.01 Morbid (severe) obesity due to excess calories; Z68.31 Body mass index [BMI] 31.0-31.9, adult; Z79.51 Long term (current) use of inhaled steroids; Z88.6 Allergy status to analgesic agent; Z56.0 Unemployment, unspecified; F17.210 Nicotine dependence, cigarettes, uncomplicated
CPT/HCPCS: 64447; J2250; J2704; J2795; J3010; J3301

== ENCOUNTER → 2025-09-07 09:17 | Outpatient (BNV) | payer OTHER, SELFPAY | PROVIDERS: Visit Provider Anesthesiology | DX: M87.052 Idiopathic aseptic necrosis of left femur (principal); M89.9 Disorder of bone, unspecified | CPT/HCPCS: 64447 ==

== ENCOUNTER 2025-09-19 13:19 | Outpatient (AMB) | payer OTHER, SELFPAY ==
--- NOTE | 2025-09-19 13:25 | MHC.OFFVIS ---
Vital Signs 09/19/25 13:26 Height 5 ft 5 in Weight 199 lb BMI 33.1 BP 123/67 Blood Pressure Location Lt brachial Position Sitting Respiration 16 Pulse 59 Pulse Source Pulse Oximeter Pulse Oximetry (%) 99 Oxygen Delivery Method Room Air Intake Visit Reasons: EXTREME PAIN SINCE PROCEDURE Tree Pruner Required: No Accompanied by: Self / Same As Patient Allergies ibuprofen Allergy (Verified 09/19/25 13:31) Difficulty Breathing NSAIDS (Non-Steroidal Anti-Inflamma Allergy (Verified 09/19/25 13:31) Difficulty Breathing HPI Comments Details: Mary is back in my office after diagnostic left femoral nerve block. She felt appropriate numbness on the anterior surface of the thigh and anterior surface of the knee however she reported her pain not even became better it got aggravated. Unfortunately in this situation I can only offer to her spinal cord stimulator [place] [employer] in lumbar positioned versus do not root ganglion stimulation L3-L4 L4-5 positioned on the left. Because her pain is bilateral I would prefer to consider [place] [employer] spinal cord stimulator in lumbar gutter positioned. The patient needs to go for psychological evaluation. She has very advanced avascular necrosis in bilateral knees. It is considered to be yatrogenic and related to steroid medications patient took for her asthma. very pleasant 40 years old female who presents in my office with complains on pain in bilateral knees more on the left and less on the right, she also reports that left pain radiates up to the thigh and on the lateral surface of the thigh he reports that pain stays elevated 8.5 to 7.5 on the left all the time. She reported that her pain started in March 17, 2025 when she while treated at [facility] fell in the bathroom. She was diagnose with bilateral more pronounced on the left and less on the right avascular necrosis of bilateral knees. Since then she reports severe pain in bilateral knees, she can not sleep normally can not do activities of daily living she can not take care of herself but she can not function normally. She had MRIs performed in [facility] dictated as below. She tried occupational therapy she is currently wearing brace on the left knee. She tried 10s unit she reports no help from 10s unit. She never had any injections into the knee. 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 Review of Systems Const All systems reviewed & are unremarkable except as noted in HPI and below ENT Reports Normal hearing present Neuro Reports Normal hearing present, Denies Abnormal speech present, Denies confusion and Denies Sensory deficit (Neuro) Psych Denies confusion Physical Exam Vital Signs: Last Vital Signs Pulse 59 09/19/25 13:26 Resp 16 09/19/25 13:26 BP 123/67 09/19/25 13:26 Pulse Ox 99 09/19/25 13:26 Oxygen Delivery Method Room Air 09/19/25 13:26 BMI result Body Mass Index 33.1 Const General: no acute distress; No confusion Nutritional Appearance: obese morbidly obese Orientation/consciousness: patient oriented x3 and No confusion Eyes General: appearance normal, both eyes and all related structures Pupils: Equal, round and reactive pupils present EOM: EOMs intact bilaterally Neck Neck: Yes full ROM Chest Chest palpation & inspection: normal inspection of the chest Resp Effort & Inspection: normal respiratory effort, able to speak in complete sentences, normal respiratory pattern, no audible wheezes and no cough Cardio Jugular venous distension: no JVD GI Inspection: Yes normal to inspection Neuro General: patient oriented x3, gait normal and No confusion Cranial nerves: Yes CN's II-XII intact bilaterally, Yes Equal, round and reactive pupils present, Yes Normal hearing present and Yes Ability to bilaterally elevate shoulders present Speech: No Abnormal speech present Gait exam (Neuro): Normal gait present Motor exam (neuro): 5/5 motor strength present throughout Sensory Exam: No Sensory deficit (Neuro) Extrem Other: On inspection the patient is wearing a brace in the left knee positioned. Range of motion in bilateral knees severely compromised more on the left and less on the right. Severe tenderness on palpation in projection of the left knee and left thigh. General: No pedal edema Psych Speech and movement: Normal speech and movement present Affect: normal affect Attitude: cooperative Thought process: Normal thought process present Thought content: Normal thought content present Insight: Good insight present (Psych) Judgement: Good judgement present (Psych) Assessment & Plan Assessment & Plan (1) Lesion of left femur: Code(s): M89.9 - Disorder of bone, unspecified Category: Medical (2) Avascular necrosis: Code(s): M87.00 - Idiopathic aseptic necrosis of unspecified bone Category: Medical (3) Bilateral knee pain: Code(s): M25.561 - Pain in right knee; M25.562 - Pain in left knee Category: Medical Plan Avascular necrosis is very pronounced on the MRI of the left knee and moderate on the right knee. The patient complains on mostly left knee pain. Diagnostic femoral nerve block resulted in no pain improvement although appropriate numbness was felt on anterior surface of the left knee. Therefore the only last option patient has is to treat her knee pain with [place] [employer] spinal cord stimulator positioned in the lumbar gutter against L3-L4 L4-5 foramina bilaterally. Patient needs to go for psychological evaluation. As soon as we receive psychological evaluation we will start to plan a trial of the [employer] [employer] SCS. Brochure of [employer] [place] [employer] SCS and [facility] brochure were given to the patient. She will give us a call when she will sit up and get her psychological evaluation done and we will schedule appointment with us. Coding Level of Care Code Est Pt Level 3 (54849) Diagnoses Lesion of left femur M89.9 Avascular necrosis M87.00 Bilateral knee pain M25.561; M25.562
[2025-09-19 13:26] VITALS: BP 123/67; PULSE 59; RESP 16; O2SAT 99; BMI 33.1
--- OUTSIDE RECORDS SUMMARY | 2025-09-19 18:47 | XMS_ITS | Clinical Summary ---
Author Organization [facility] Address [address] [place] [phone] Phone Care Team Providers Care Customs Inspector Name Role Phone Chelsea Camacho MD Primary Care Provider [phone] Allergies Active Allergy Reactions Criticality Noted Date Comments Aspirin Anaphylaxis High 06/12/2025 Fish Containing Products 06/12/2025 Ibuprofen Anaphylaxis High 06/12/2025 Naproxen Anaphylaxis High 06/12/2025 Nsaids (Non-Steroidal Anti-I nflammatory Drug) Anaphylaxis High 06/12/2025 Medications No known medications Active Problems No known active problems Medical History Medical History Date Comments Avascular bone necrosis ([facility] V24, [facility] V2 8) Asthma Social History Tobacco Use [...] (2 of 2 - PCV) 02/02/2011 02/02/2010 HPV Vaccines (1 - 3-dose SCDM series) 2013 Cholesterol Screening (Lipid Panel) 11/01/2022 HIV Screening 11/01/2022 Hepatitis C Screening 11/01/2022 Social Influencers of Health Screening 11/01/2022 Depression Screening 11/29/2024 COVID-19 Vaccine ( season) 2025 03/16/2024, 03/01/2024, 08/04/2022, Additional history exists Influenza Vaccine (#1) 2025 , 12/05/2021, 12/13/2017, Additional history exists DTaP,Tdap,and Td Vaccines (3 - Td or Tdap) 12/05/2031 12/05/2021, 01/13/2011 RSV Immunization Adult Patients (1 - 1-dose 75+ series) 2061 HIB Vaccines Aged Out No longer eligi [...] on patient's age to complete this topic Insurance [facility] PLAN AUTO GENERIC MEDICAID - [place] [address] HEALTH PLAN Care Teams Customs Inspector Relationship Specialty Start Date End Date Chelsea Camacho MD [address] [phone] PCP - General Internal Medicine 06/12/25
== END 2025-09-19 14:06 | disposition home or self-care (01) ==
LOC: HO.PMC 13:20
PROVIDERS: Visit Provider Anesthesiology
DX: M89.9 Disorder of bone, unspecified (principal); M87.00 Idiopathic aseptic necrosis of unspecified bone; M25.561 Pain in right knee; M25.562 Pain in left knee
CPT/HCPCS: 99213

== ENCOUNTER → 2025-09-19 13:19 | Outpatient (BNVA) | payer OTHER, SELFPAY | PROVIDERS: Visit Provider Anesthesiology | DX: M25.561 Pain in right knee (principal); M25.562 Pain in left knee; M89.9 Disorder of bone, unspecified; G89.29 Other chronic pain; R20.0 Anesthesia of skin; M87.061 Idiopathic aseptic necrosis of right tibia; M87.062 Idiopathic aseptic necrosis of left tibia | CPT/HCPCS: 99212 ==

== ENCOUNTER 2025-10-11 10:11 | Outpatient (AMB) | payer OTHER, SELFPAY ==
--- NOTE | 2025-10-11 10:27 | MHC.OFFVIS ---
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 She is suffering from severe avascular necrosis of bilateral knees more on the left and less on the right. Her pain is most severe in the left knee. Unfortunately femoral nerve block was not successful to treat her pain. I offered the patient to consider spinal cord stimulator Volance trial with positioning of the electrodes in the projection of the L3-L4 and L5 foramina in the lumbar gutter on the left. This will allow me to stimulate almost all of the vertebral nerve roots involved in pain transmission from the left knee. We discussed spinal cord stimulator and smoking. I explained to the patient importance of quitting smoking in the view of the effectiveness of the spinal cord stimulator. I explained to the patient that for smokers spinal cord stimulator works shorter period of time compared to spinal cord stimulator in nonsmokers. She is trying to quit. I explained to her that Nicorette gum or nicotine patch we will be poor option to quit smoking. She needs to stop smoking cold turkey or possibly use medications which do not contain nicotine such as bupropion or Chantix. She told me that she will go to primary care physician to discuss smoking cessation. She needs to go through psychological evaluation in the order to get prepared for the SCS trial. She is unable to afford [facility] they do not accept her insurance. The patient received today the the page of the psychology group which accepts Medicaid [employer] [facility]. She will start working with them on scheduling her for psychological evaluation. As soon as psychological evaluation will be completed we will schedule the patient for Volance SCS trial. Results of diagnostic left femoral nerve block. She felt appropriate numbness on the anterior surface of the thigh and anterior surface of the knee however she reported her pain not even became better it got aggravated. She has very advanced avascular necrosis in bilateral knees. It is considered to be yatrogenic and related to steroid medications patient took for her asthma. Prior: very pleasant 40 years old female who presents in my office with complains on pain in bilateral knees more on the left and less on the right, she also reports that left pain radiates up to the thigh and on the lateral surface of the thigh he reports that pain stays elevated 8.5 to 7.5 on the left all the time. She reported that her pain started in March 17, 2025 when she while treated at [facility] fell in the bathroom. She was diagnose with bilateral more pronounced on the left and less on the right avascular necrosis of bilateral knees. Since then she reports severe pain in bilateral knees, she can not sleep normally can not do activities of daily living she can not take care of herself but she can not function normally. She had MRIs performed in [facility] dictated as below. She tried occupational therapy she is currently wearing brace on the left knee. She tried 10s unit she reports no help from 10s unit. She never had any injections into the knee. 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 Review of Systems Const All systems reviewed & are unremarkable except as noted in HPI and below ENT Reports Normal hearing present Neuro Reports Normal hearing present, Denies Abnormal speech present, Denies confusion and Denies Sensory deficit (Neuro) Psych Denies confusion Physical Exam Vital Signs: Last Vital Signs Pulse 72 10/11/25 10:33 Resp 16 10/11/25 10:33 BP 146/91 H 10/11/25 10:33 Pulse Ox 98 10/11/25 10:33 Oxygen Delivery Method Room Air 10/11/25 10:33 BMI result Body Mass Index 32.8 Const General: no acute distress; No confusion Nutritional Appearance: obese morbidly obese Orientation/consciousness: patient oriented x3 and No confusion Eyes General: appearance normal, both eyes and all related structures Pupils: Equal, round and reactive pupils present EOM: EOMs intact bilaterally Neck Neck: Yes full ROM Chest Chest palpation & inspection: normal inspection of the chest Resp Effort & Inspection: normal respiratory effort, able to speak in complete sentences, normal respiratory pattern, no audible wheezes and no cough Cardio Jugular venous distension: no JVD GI Inspection: Yes normal to inspection Neuro General: patient oriented x3, gait normal and No confusion Cranial nerves: Yes CN's II-XII intact bilaterally, Yes Equal, round and reactive pupils present, Yes Normal hearing present and Yes Ability to bilaterally elevate shoulders present Speech: No Abnormal speech present Gait exam (Neuro): Normal gait present Motor exam (neuro): 5/5 motor strength present throughout Sensory Exam: No Sensory deficit (Neuro) Extrem Other: On inspection the patient is wearing a brace in the left knee positioned. Range of motion in bilateral knees severely compromised more on the left and less on the right. Severe tenderness on palpation in projection of the left knee and left thigh. General: No pedal edema Psych Speech and movement: Normal speech and movement present Affect: normal affect Attitude: cooperative Thought process: Normal thought process present Thought content: Normal thought content present Insight: Good insight present (Psych) Judgement: Good judgement present (Psych) Assessment & Plan Assessment & Plan (1) Lesion of left femur: Code(s): M89.9 - Disorder of bone, unspecified Category: Medical (2) Avascular necrosis: Code(s): M87.00 - Idiopathic aseptic necrosis of unspecified bone Category: Medical (3) Bilateral knee pain: Code(s): M25.561 - Pain in right knee; M25.562 - Pain in left knee Category: Medical Plan Avascular necrosis is very pronounced on the MRI of the left knee and moderate on the right knee. The patient complains on mostly left knee pain. Diagnostic femoral nerve block resulted in no pain improvement although appropriate numbness was felt on anterior surface of the left knee. Therefore the only last option patient has is to treat her knee pain with Volance spinal cord stimulator positioned in the lumbar gutter against L3-L4 L4-5 foramina bilaterally. Patient needs to go for psychological evaluation. As soon as we receive psychological evaluation we will start to plan a trial of the [place] scientific SCS. Brochure of [place] scientific SCS and [facility] brochure were given to the patient. Discussion of cessation of the smoking was done today. Risks and benefits of spinal cord stimulator were explained to the patient today. Patient Instructions: I here by testify that I spent 35 minutes in conversation with this patient as well as planning her care and organizing this note. Coding Level of Care Code Est Pt Level 4 (69288) Diagnoses Lesion of left femur M89.9 Avascular necrosis M87.00 Bilateral knee pain M25.561; M25.562
[2025-10-11 10:33] VITALS: BP 146/91; PULSE 72; RESP 16; O2SAT 98; BMI 32.8
--- OUTSIDE RECORDS SUMMARY | 2025-10-11 12:15 | XMS_ITS | Clinical Summary ---
Author Organization [facility] Address [address] [place] [id number] Phone Care Team Providers Care Hearing Therapy Teacher Name Role Phone Chelsea Camacho MD Primary Care Provider [phone] Allergies Active Allergy Reactions Criticality Noted Date Comments Aspirin Anaphylaxis High 06/12/2025 Fish Containing Products 06/12/2025 Ibuprofen Anaphylaxis High 06/12/2025 Naproxen Anaphylaxis High 06/12/2025 Nsaids (Non-Steroidal Anti-I nflammatory Drug) Anaphylaxis High 06/12/2025 Medications No known medications Active Problems No known active problems Medical History Medical History Date Comments Avascular bone necrosis ([facility] V24, [facility] V2 8) Asthma Social History Tobacco [...] patient's age to complete this topic Insurance [facility] [employer] GENERIC MEDICAID - [place] [employer] [place] [address] HEALTH PLAN Care Teams Hearing Therapy Teacher Relationship Specialty Start Date End Date Chelsea Camacoh MD [address] [id number] PCP - General Internal Medicine 06/12/25
== END 2025-10-11 10:49 | disposition home or self-care (01) ==
LOC: HO.PMC 10:12
PROVIDERS: PCP Internal Medicine; Visit Provider Anesthesiology
DX: M89.9 Disorder of bone, unspecified (principal); M87.00 Idiopathic aseptic necrosis of unspecified bone; M25.561 Pain in right knee; M25.562 Pain in left knee
CPT/HCPCS: 99214

== ENCOUNTER → 2025-10-11 10:11 | Outpatient (BNVA) | payer OTHER, SELFPAY | PROVIDERS: PCP Internal Medicine; Visit Provider Anesthesiology | DX: M25.561 Pain in right knee (principal); M25.562 Pain in left knee; M89.9 Disorder of bone, unspecified; M87.08 Idiopathic aseptic necrosis of bone, other site | CPT/HCPCS: 99212 ==